=== PATIENT | male | born 1970 | race Two or more races ===

== ENCOUNTER 2020-02-03 21:12 | Emergency (ER) | payer OTHER ==
[~2020-02-03] VITALS: Ht 157.5 cm; Wt 74.8 kg
[2020-02-03] MEDS ORDERED: DILANTIN100 MG PO (21:20)
[2020-02-03] MEDS ORDERED: IMITREX100 MG PO (21:20)
[2020-02-03] MEDS ORDERED: CLONAZEPAM0.5 MG (21:21)
[2020-02-03] MEDS ORDERED: PEPCID AC20 MG PO (21:47)
[2020-02-03] MEDS ORDERED: TREXIMET 85-501 EACH PO (21:47)
[2020-02-03] MEDS ORDERED: PHENERGAN25 MG PO (22:36)
== END 2020-02-03 22:39 | disposition home or self-care (01) ==
LOC: ER 21:12
DX: G43.909 Migraine, unspecified, not intractable, without status migrainosus (principal)

== ENCOUNTER 2020-02-10 10:10 | Emergency (ER) | payer OTHER ==
[~2020-02-10] VITALS: Ht 160 cm; Wt 76.2 kg
[~2020-02-10 10:10] MED LIST: CLONAZEPAM0.5 MG; DILANTIN100 MG PO; IMITREX100 MG PO; PEPCID AC20 MG PO; PHENERGAN25 MG PO; TREXIMET 85-501 EACH PO
[2020-02-10] MEDS ORDERED: KETO10TA2 PO (11:40)
[2020-02-10] MEDS ORDERED: NORFLEX100MG PO (11:40)
== END 2020-02-10 11:43 | disposition home or self-care (01) ==
LOC: ER 10:10
DX: G44.89 Other headache syndrome (principal)